=== PATIENT | male | born 1980 | race Caucasian/White ===

== ENCOUNTER 2017-08-11 07:57 | Emergency (ER) | payer MEDICAID ==
[~2017-08-11] VITALS: Ht 157.5 cm; Wt 72.6 kg
[~2017-08-11 07:57] MED LIST: ACHD5005 PO; AMOX500C2 PO; BSP5T PO; CITA20TA4 PO; CPR500T PO; DOXY100C2 PO; HYDR-700 PO; HYDR1TAB PO; KETO-22 PO; LAMO25TA PO; LISD30CA PO; NAPR-243 PO; ORPH100T PO; PREVACID
[2017-08-11] MEDS ORDERED: NS IV 1000 ML 1,000 ML IV ONE ×2 (08:09→09:02)
[2017-08-11] MEDS ORDERED: KETOROLAC 30 MG/ML VIAL IVP STA (08:09)
[2017-08-11 08:19] LABS: BASOPHILS % (AUTO) 1 % (0-10); EOSINOPHILS # (AUTO) 0.1 10^3/uL (0.0-0.3); EOSINOPHILS % (AUTO) 1 % (0-10); HEMATOCRIT 40 % (40-54); HEMOGLOBIN 13.9 G/DL (13.3-17.7); LYMPHOCYTES # (AUTO) 1.3 X 10^3 (1.0-4.0); LYMPHOCYTES % (AUTO) 23 % (12-44); MEAN CORPUSCULAR HEMOGLOBIN 32 PG (25-34); MEAN CORPUSCULAR HGB CONC 35 G/DL (32-36); MEAN CORPUSCULAR VOLUME 91 FL (80-99); MEAN PLATELET VOLUME 12.3 FL (7.4-10.4); MONOCYTES # (AUTO) 0.8 X 10^3 (0.0-1.0); MONOCYTES % (AUTO) 14 % (0-12); NEUTROPHILS # (AUTO) 3.5 X 10^3 (1.8-7.8); NEUTROPHILS % (AUTO) 61 % (42-75); PLATELET COUNT 216 10^3/uL (130-400); RED BLOOD COUNT 4.39 10^6/uL (4.35-5.85); RED CELL DISTRIBUTION WIDTH 14.8 % (10.0-14.5); WHITE BLOOD COUNT 5.6 10^3/uL (4.3-11.0)
--- NOTE | 2017-08-11 08:35 | ED General ---
General Chief Complaint: Back Problems Stated Complaint: PAIN IN RIGHT LWR SIDE,NAUSEA Source of Information: Patient Exam Limitations: No Limitations History of Present Illness Date Seen by Provider: Aug 11, 2017 Time Seen by Provider: 07:58 Initial Comments Here with report of pain in the right lower side and back area. Reports that he 's had dark urine since July 18. This is about this time he started a new workout program including running. He thinks he maybe got dehydrated. This morning he has pain and was a little dizzy. Still has dark urine. [place] nauseated. Denies fever. He is unsure what is going on. Timing/Duration: Getting Worse, Other (3 weeks) Severity: Moderate Associated Systoms: No Chest Pain, No Cough, No Fever/Chills; Nausea/Vomiting; No Shortness of Air; Weakness Allergies and Home Medications Allergies Coded Allergies: No Known Drug Allergies (Unverified , 07/09/09) Home Medications Buspirone Hcl 5 Mg Tablet, 1 TAB PO BID, (Reported) Ciprofloxacin 500 Mg Tablet, 1 TAB PO BID FOR INFECTION Prescribed by: GAYATHRI GONZALEZ on 01/01/12 1441 Patient Home Medication List Home Medication List Reviewed: Yes (recently started Pristiq) Review of Systems Constitutional: see HPI; No chills, No fever EENTM: no symptoms reported Respiratory: No short of breath, No wheezing Cardiovascular: No chest pain, No edema Gastrointestinal: No abdominal pain; nausea; No vomiting Genitourinary: decreased output; No pain; other (dark urine) Musculoskeletal: back pain, muscle pain, muscle stiffness Skin: no symptoms reported All Other Systems Reviewed Negative Unless Noted: Yes Past Ymjgukk-Zhwqzk-Riyjcu Hx Past Med/Social Hx: Reviewed Nursing Past Med/Soc Hx Patient Social History Alcohol Use: Denies Use Recreational Drug Use: No Smoking Status: Never a Smoker Recent Foreign Travel: No Contact w/Someone Who Travel: No Past Medical History Surgeries: No Respiratory: No Cardiac: No Neurological: No Genitourinary: No Gastrointestinal: No Musculoskeletal: No Psychosocial: Yes Anxiety, Depression Family Medical History Reviewed Nursing Family Hx Physical Exam Vital Signs Capillary Refill : General Appearance: No Apparent Distress, WD/WN HEENT: PERRL/EOMI, Pharynx Normal Neck: Non Tender, Supple Respiratory: Lungs Clear, Normal Breath Sounds Cardiovascular: Regular Rate, Rhythm, No Murmur Gastrointestinal: Non Tender, Soft Back: No Vertebral Tenderness, CVA Tenderness (R) Extremity: Normal Range of Motion, Non Tender Neurologic/Psychiatric: Alert, Oriented x3 Skin: Normal Color, Warm/Dry Progress/Results/Core Measures Suspected Sepsis SIRS Temperature: Pulse: Respiratory Rate: Laboratory Tests 08/11/17 08:10: White Blood Count 5.6 Blood Pressure / Mean: Laboratory Tests 08/11/17 08:10: Creatinine 0.84, Platelet Count 216, Total Bilirubin 2.5H Results/Orders Lab Results Laboratory Tests Test 08/11/17 08:10 08/11/17 09:33 Range/Units White Blood Count 5.6 4.3-11.0 10^3/uL Red Blood Count 4.39 4.35-5.85 10^6/uL Hemoglobin 13.9 13.3-17.7 G/DL Hematocrit 40 40-54 % Mean Corpuscular Volume 91 80-99 FL Mean Corpuscular Hemoglobin 32 25-34 PG Mean Corpuscular Hemoglobin Concent 35 32-36 G/DL Red Cell Distribution Width 14.8 H 10.0-14.5 % Platelet Count 216 130-400 10^3/uL Mean Platelet Volume 12.3 H 7.4-10.4 FL Neutrophils (%) (Auto) 61 42-75 % Lymphocytes (%) (Auto) 23 12-44 % Monocytes (%) (Auto) 14 H 0-12 % Eosinophils (%) (Auto) 1 0-10 % Basophils (%) (Auto) 1 0-10 % Neutrophils # (Auto) 3.5 1.8-7.8 X 10^3 Lymphocytes # (Auto) 1.3 1.0-4.0 X 10^3 Monocytes # (Auto) 0.8 0.0-1.0 X 10^3 Eosinophils # (Auto) 0.1 0.0-0.3 10^3/uL Basophils # (Auto) 0.0 0.0-0.1 10^3/uL Sodium Level 139 135-145 MMOL/L Potassium Level 3.9 3.6-5.0 MMOL/L Chloride Level 105 98-107 MMOL/L Carbon Dioxide Level 23 21-32 MMOL/L Anion Gap 11 5-14 MMOL/L Blood Urea Nitrogen 16 7-18 MG/DL Creatinine 0.84 0.60-1.30 MG/DL Estimat Glomerular Filtration Rate > 60 BUN/Creatinine Ratio 19 Glucose Level 113 H 70-105 MG/DL Calcium Level 9.2 8.5-10.1 MG/DL Total Bilirubin 2.5 H 0.1-1.0 MG/DL Aspartate Amino Transf (AST/SGOT) 17 5-34 U/L Alanine Aminotransferase (ALT/SGPT) 26 0-55 U/L Alkaline Phosphatase 40 40-136 U/L Total Creatine Kinase 99 30-200 U/L Myoglobin 22.9 10.0-92.0 NG/ML C-Reactive Protein High Sensitivity 0.09 0.00-0.50 MG/DL Total Protein 6.8 6.4-8.2 GM/DL Albumin 4.2 3.2-4.5 GM/DL Urine Color YELLOW Urine Clarity SLIGHTLY CLOUDY Urine pH 6.5 5-9 Urine Specific [place] 1.015 L 1.016-1.022 Urine Protein 2+ H NEGATIVE Urine Glucose (UA) NEGATIVE NEGATIVE Urine Ketones 4+ H NEGATIVE Urine Nitrite NEGATIVE NEGATIVE Urine Bilirubin NEGATIVE NEGATIVE Urine Urobilinogen 1 NORMAL MG/DL Urine Leukocyte Esterase 1+ H NEGATIVE Urine RBC (Auto) NEGATIVE NEGATIVE Urine RBC NONE /HPF Urine WBC 2-5 /HPF Urine Squamous Epithelial Cells NONE /HPF Urine Crystals NONE /LPF Urine Bacteria NEGATIVE /HPF Urine Casts NONE /LPF Urine Mucus LARGE H /LPF Urine Culture Indicated NO My Orders Orders - GÉNESIS VARGAS MD Cbc With Automated Diff (08/11/17 08:09) Comprehensive Metabolic Panel (08/11/17 08:09) Hs C Reactive Protein (08/11/17 08:09) Ua Culture If Indicated (08/11/17 08:09) Saline Lock/Iv-Start (08/11/17 08:09) Ns Iv 1000 Ml (Sodium Chloride 0.9%) (08/11/17 08:09) Ketorolac Injection (Toradol Injection) (08/11/17 08:09) Creatine Kinase (08/11/17 08:11) Myoglobin Serum (08/11/17 08:11) Saline Lock/Iv-Start (08/11/17 09:02) Ns Iv 1000 Ml (Sodium Chloride 0.9%) (08/11/17 09:02) Ct Abd/Pelvis Wo(Kidney Stone) (08/11/17 09:32) Medications Given in ED Current Medications Medications Dose Ordered Sig/Horacio Route Start Time Stop Time Status Last Admin Dose Admin Sodium Chloride 1,000 ml @ 0 mls/hr Q0M ONCE IV 08/11/17 08:09 08/11/17 08:11 DC 08/11/17 08:18 0 MLS/HR Sodium Chloride 1,000 ml @ 0 mls/hr Q0M ONCE IV 08/11/17 09:02 08/11/17 09:03 DC 08/11/17 09:19 0 MLS/HR Vital Signs/I&O Capillary Refill : Progress Note : Progress Note Seen and evaluated. IV, labs and UA ordered. Normal saline 1 L bolus. Monitor patient. Repeat normal saline 1 L bolus. UA ultimately obtained. The urine is dark. We will check CT abdomen pelvis related to kidney stones. This will also evaluate the rest of the abdomen and pelvis. 1038: CT negative. Labs and UA are reviewed and reviewed with the patient and family. No acute findings for kidney stones or other abnormalities. Total bilirubin is elevated. Patient has been actively dieting and exercising and this may be related to that. He has no pain in the right upper quadrant. Overall he feels better now after fluids and the 30 mg of Toradol that was ordered and given. Discharged home with return precautions. Patient verbalize understanding of instructions and agreement with plan. Diagnostic Imaging Diagonstic Imaging: CT Plain Films/CT/US/NM/MRI: abdomen, pelvis Comments VIA [facility]. [place], [place] NAME: ROBBIE HILLIARD [facility] REC#: [id number] PT STATUS: REG ER : 1980 PHYSICIAN: GÉNESIS VARGAS MD ADMIT DATE: 08/11/17/ER Draft Date of Exam:08/11/17 CT ABD/PELVIS WO(KIDNEY STONE) PROCEDURE: CT urinary tract, rule out kidney stone. TECHNIQUE: Multiple contiguous axial images were obtained through the abdomen and pelvis without the use of intravenous contrast. INDICATION: History kidney stones. Patient now complains of right-sided back pain. Comparison is made with prior CT from 09/20/2011. The lung bases are clear. No discrete liver mass is identified. The gallbladder is unremarkable. The pancreas and spleen are unremarkable. No adrenal mass is detected. No renal calculi or hydronephrosis is identified. The aorta is non-aneurysmal. The small and large bowel loops are normal caliber. The appendix is unremarkable. No ascites is seen. No inflammatory process is identified. Partially filled urinary bladder does demonstrate some questionable wall thickening. Prostate is unremarkable. 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 IMPRESSION: 1. No evidence of urinary tract calculi or obstruction. 2. Questionable mild bladder wall thickening. While this could be owing to incomplete distention, possibility of cystitis cannot be entirely excluded. Dictated on workstation # [id number] Dict: 08/11/17 1001 Trans: 08/11/17 1012 SABINE [id number] Interpreted by: FAHAD MERA MD Electronically signed by: Departure Impression Primary Impression: Dehydration Additional Impression: Low back pain Qualified Codes: M54.5 - Low back pain Disposition: 01 HOME, SELF-CARE Condition: Improved Departure-Patient Inst. Referrals: NO,LOCAL PHYSICIAN (PCP/Family) Primary Care Physician Patient Instructions: Dehydration, Adult (DC), Lumbar Muscle Strain (DC) Add. Discharge Instructions: All discharge instructions reviewed with patient and/or family. Voiced understanding. Follow-up with your doctor next week for recheck and further evaluation. Refrain from vigorous activity for the next few days and then restart exercise slowly after that. Drink plenty of fluids as you are dehydrated. You should watch your urine color and that should becoming light yellow as you're hydration improves. Return for worse pain, fever, vomiting, weakness, breathing problems or other concerns as needed. Copy Copies To 1: KAYLA WATSON TIMOTHY D MD Aug 11, 2017 08:35
--- OUTSIDE RECORDS SUMMARY | 2017-08-11 08:41 | XMS REPORT | Continuity of Care Document ---
Author Author [facility]ly [facility] Address Unknown Phone Unavailable Allergies Active Description Code Type Severity Reaction Onset Reported/Identified Relationship to Patient Clinical Status Yes Lexapro 10 mg tablet Drug Allergy N/A N/A 06/15/2012 Medications There is no data. Problems Date Dx Coded Attending Type Code Diagnosis Diagnosed By 10/03/2007 784.0 HEADACHE 10/03/2007 784.0 HEADACHE 10/03/2007 784.0 HEADACHE 10/03/2007 784.0 HEADACHE 10/03/2007 784.0 HEADACHE 10/03/2007 784.0 HEADACHE 10/03/2007 784.0 HEADACHE 10/03/2007 784.0 HEADACHE 10/03/2007 MARIAMA STANFORD APRN 784.0 HEADACHE 01/17/2012 608.9 UNSPECIFIED DISORDER OF MALE GENITAL ORGANS 01/17/2012 788.62 SLOWING OF URINARY STREAM 01/17/2012 608.9 UNSPECIFIED DISORDER OF MALE GENITAL ORGANS 01/17/2012 788.62 SLOWING OF URINARY STREAM 01/17/2012 608.9 UNSPECIFIED DISORDER OF MALE GENITAL ORGANS 01/17/2012 788.62 SLOWING OF URINARY STREAM 01/17/2012 608.9 UNSPECIFIED DISORDER OF MALE GENITAL ORGANS 01/17/2012 788.62 SLOWING OF URINARY STREAM 01/17/2012 608.9 UNSPECIFIED DISORDER OF MALE GENITAL ORGANS 01/17/2012 788.62 SLOWING OF URINARY STREAM 01/17/2012 608.9 UNSPECIFIED DISORDER OF MALE GENITAL ORGANS 01/17/2012 788.62 SLOWING OF URINARY STREAM 01/17/2012 608.9 UNSPECIFIED DISORDER OF MALE GENITAL ORGANS 01/17/2012 788.62 SLOWING OF URINARY STREAM 01/17/2012 608.9 UNSPECIFIED DISORDER OF MALE GENITAL ORGANS 01/17/2012 788.62 SLOWING OF URINARY STREAM 01/17/2012 MARIAMA STANFORD APRN 608.9 UNSPECIFIED DISORDER OF MALE GENITAL ORGANS 01/17/2012 MARIAMA STANFORD APRN 788.62 SLOWING OF URINARY STREAM 01/31/2012 603.9 HYDROCELE UNSPECIFIED 01/31/2012 603.9 HYDROCELE UNSPECIFIED 01/31/2012 603.9 HYDROCELE UNSPECIFIED 01/31/2012 603.9 HYDROCELE UNSPECIFIED 01/31/2012 603.9 HYDROCELE UNSPECIFIED 01/31/2012 603.9 HYDROCELE UNSPECIFIED 01/31/2012 603.9 HYDROCELE UNSPECIFIED 01/31/2012 MARIAMA STANFORD APRN 603.9 HYDROCELE UNSPECIFIED 05/04/2012 461.9 SINUSITIS ACUTE 05/04/2012 525.9 TOOTH PAIN 05/04/2012 461.9 SINUSITIS ACUTE 05/04/2012 525.9 TOOTH PAIN 05/04/2012 461.9 SINUSITIS ACUTE 05/04/2012 525.9 TOOTH PAIN 05/04/2012 461.9 SINUSITIS ACUTE 05/04/2012 525.9 TOOTH PAIN 05/04/2012 461.9 SINUSITIS ACUTE 05/04/2012 525.9 TOOTH PAIN 05/04/2012 461.9 SINUSITIS ACUTE 05/04/2012 525.9 TOOTH PAIN 05/04/2012 MARIAMA STANFORD APRN 461.9 SINUSITIS ACUTE 05/04/2012 MARIAMA STANFORD APRN 525.9 TOOTH PAIN 05/14/2012 789.09 ABDOMINAL PAIN OTHER SPECIFIED SITE 05/14/2012 789.09 ABDOMINAL PAIN OTHER SPECIFIED SITE 05/14/2012 789.09 ABDOMINAL PAIN OTHER SPECIFIED SITE 05/14/2012 789.09 ABDOMINAL PAIN OTHER SPECIFIED SITE 05/14/2012 789.09 ABDOMINAL PAIN OTHER SPECIFIED SITE 05/14/2012 MARIAMA STANFORD APRN 789.09 ABDOMINAL PAIN OTHER SPECIFIED SITE 05/25/2012 300.23 AN SOCIAL PHOBIA 05/25/2012 314.00 ADHD INATTENTIVE 05/25/2012 V58.69 MEDICATION HIGH RISK 05/25/2012 300.23 AN SOCIAL PHOBIA 05/25/2012 314.00 ADHD INATTENTIVE 05/25/2012 V58.69 MEDICATION HIGH RISK 05/25/2012 300.23 AN SOCIAL PHOBIA 05/25/2012 314.00 ADHD INATTENTIVE 05/25/2012 V58.69 MEDICATION HIGH RISK 05/25/2012 300.23 AN SOCIAL PHOBIA 05/25/2012 314.00 ADHD INATTENTIVE 05/25/2012 V58.69 MEDICATION HIGH RISK 05/25/2012 MARIAMA STANFORD APRN 300.23 AN SOCIAL PHOBIA 05/25/2012 MARIAMA STANFORD APRN 314.00 ADHD INATTENTIVE 05/25/2012 MARIAMA STANFORD APRN V58.69 MEDICATION HIGH RISK 08/11/2012 477.9 RHINITIS 08/11/2012 MARIAMA STANFORD APRN 477.9 RHINITIS Procedures Code Description [place] [address] UA W/ CULTURE IF INDICATED 01/17/2012 37603 US SCROTUM ULTRASOUND 01/17/2012 General S Luke Shell 01/19/2012 LUKE SOLOMON 05/04/2012 79726 PSYCH DIAG EVAL W/MED SRVCS 05/25/2012 89119 URINE DRUG SCREEN (IN-HOUSE ) 05/25/2012 Results There is no data. Encounters ACCT No. Visit Date/Time Discharge Status Pt. Type Provider Facility Loc./Unit Complaint [id number] 08/16/2012 08:44:00 08/16/2012 23:59:59 CLS Outpatient MARIAMA STANFORD APRN [id number] 05/14/2012 12:46:00 05/14/2012 23:59:59 CLS Outpatient [id number] 05/04/2012 15:09:00 05/04/2012 23:59:59 CLS Outpatient [id number] 01/17/2012 13:31:00 01/17/2012 23:59:59 CLS Outpatient [id number] 01/17/2012 13:31:00 01/17/2012 23:59:59 CLS Outpatient [id number] 08/11/2012 13:28:00 Document Registration [id number] 07/19/2012 08:44:00 Document Registration [id number] 06/15/2012 12:19:00 Document Registration [id number] 05/25/2012 10:54:00 Document Registration
[2017-08-11 08:44] LABS: ALANINE AMINOTRANSFERASE 26 U/L (0-55); ALBUMIN 4.2 GM/DL (3.2-4.5); ALKALINE PHOSPHATASE 40 U/L (40-136); BILIRUBIN,TOTAL 2.5 MG/DL (0.1-1.0); BUN/CREATININE RATIO 19; CALCIUM 9.2 MG/DL (8.5-10.1); CARBON DIOXIDE 23 MMOL/L (21-32); CHLORIDE 105 MMOL/L (98-107); CREATINE KINASE 99 U/L (30-200); CREATININE SERUM 0.84 MG/DL (0.60-1.30); GFR ESTIMATED > 60; GLUCOSE 113 MG/DL (70-105); POTASSIUM 3.9 MMOL/L (3.6-5.0); SODIUM 139 MMOL/L (135-145); TOTAL PROTEIN 6.8 GM/DL (6.4-8.2)
[2017-08-11 08:50] LABS: MYOGLOBIN SERUM 22.9 NG/ML (10.0-92.0)
[2017-08-11 09:43] LABS: BILIRUBIN,URINE NEGATIVE (NEGATIVE); CLARITY,URINE SLIGHTLY CLOUDY; COLOR,URINE YELLOW; GLUCOSE, URINE (UA) NEGATIVE (NEGATIVE); KETONES,URINE 4+ (NEGATIVE); LEUKOCYTE ESTERASE ,URINE 1+ (NEGATIVE); NITRITE,URINE NEGATIVE (NEGATIVE); PH,URINE 6.5 (5-9); PROTEIN,URINE 2+ (NEGATIVE); UROBILINOGEN,URINE 1 MG/DL (NORMAL)
[2017-08-11 10:01] LABS: BACTERIA,URINE NEGATIVE /HPF
--- NOTE | 2017-08-11 10:12 | Diagnostic Imaging Report ---
PROCEDURE: CT urinary tract, rule out kidney stone. TECHNIQUE: Multiple contiguous axial images were obtained through the abdomen and pelvis without the use of intravenous contrast. INDICATION: History kidney stones. Patient now complains of right-sided back pain. Comparison is made with prior CT from 09/20/2011. The lung bases are clear. No discrete liver mass is identified. The gallbladder is unremarkable. The pancreas and spleen are unremarkable. No adrenal mass is detected. No renal calculi or hydronephrosis is identified. The aorta is non-aneurysmal. The small and large bowel loops are normal caliber. The appendix is unremarkable. No ascites is seen. No inflammatory process is identified. Partially filled urinary bladder does demonstrate some questionable wall thickening. Prostate is unremarkable. 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 IMPRESSION: 1. No evidence of urinary tract calculi or obstruction. 2. Questionable mild bladder wall thickening. While this could be owing to incomplete distention, possibility of cystitis cannot be entirely excluded. Dictated by: Dictated on workstation # [id number]
[2017-08-11 10:54] VITALS: BP 114/67
== END 2017-08-11 10:54 | disposition home or self-care (01) ==
LOC: EDUNIT# 07:57 → ER 08:00
DX: M54.5 Low back pain (principal); E86.0 Dehydration; F41.9 Anxiety disorder, unspecified; F32.9 Major depressive disorder, single episode, unspecified
CPT/HCPCS: 36415; 74176; 80053; 81000; 82550; 83874; 85025; 86141